=== PATIENT | female | born 1960 | race Caucasian/White ===

== ENCOUNTER 2023-06-19 15:32 | Emergency (ER) | payer BC, MEDICARE ==
[2023-06-19 15:57] VITALS: TEMP 96.9
[2023-06-19 16:43] VITALS: O2SAT 94
--- NOTE | 2023-06-19 17:03 | ERPHSYRPT ---
- History of Present Illness Historian: patient Exam Limitations: other (Poor historian) Patient Subjective Stated Complaint: pt states that her blood pressure is high. pt states that blood pressure last night was 170/113. Triage Nursing Assessment: pt ambulated into the er; pt is axo x4; c/o htn; pt denies chest pain; hx HTN; clear apical heart tone; clear lung sounds in all lobes; strong lucero radial pulses; strong lucero pedal pulses; hypertensive; skin PDW; no respiratory distress present Physician History: 62 yo WF w h/o GA/DM/HTN/hyperlipidemia/1ppd tobacco abuse until 12 yrs ago originally presented to the ER for elevated BP but now states that she had mid- sternal chest pain starting at 11AM and lasting until 15:30. Pain was an ache, 9 out 10 , and wo radiation. Pt is pain free upon presentation. She denies GA/CAD. States that pain was accompanied by nausea wo vomiting/diaphoresis/dyspnea. Timing/Duration: other (11AM today) Quality: aching Location: substernal Chest Pain Radiation: no radiation Severity of Pain-Max: moderate Severity of Pain-Current: none Modifying Factors: Improves With: nothing Associated Symptoms: denies symptoms, nausea Prior Chest Pain/Cardiac Workup: no prior chest pain Nitro Today/Relief: no nitro taken today Aspirin Treatment Today: no aspirin today Allergies/Adverse Reactions: codeine Allergy (Mild, Verified 06/19/23 15:35) "FEELS DRUNK" Penicillins Allergy (Mild, Verified 06/19/23 15:35) Rash ezetimibe [From Vytorin] Adverse Reaction (Verified 06/19/23 15:35) Muscle Aches niacin Adverse Reaction (Verified 06/19/23 15:35) simvastatin [From Vytorin] Adverse Reaction (Verified 06/19/23 15:35) Muscle Aches Home Medications: Albuterol Sulfate [Proair Respiclick] 2 puff Q12H PRN PRN 03/06/15 [History] Levothyroxine Sodium [Levoxyl] 112 mcg PO DAILY 03/06/15 [History] Metoprolol Tartrate 50 mg [Lopressor 50 MG] 50 mg PO DAILY 03/06/15 [History] PANTOPRAZOLE 40 mg Tablet [Protonix 40MG Tablet] 40 mg PO DAILY 03/06/15 [History] Fluoxetine HCl 20 mg [Prozac 20 MG] 20 mg PO TID 06/19/23 [History] Isosorbide Mononitrate 30 mg [Imdur 30 MG] 30 mg PO DAILY 06/19/23 [History] Pioglitazone HCl [Actos] 45 mg PO DAILY 06/19/23 [History] Potassium Chloride 10 meq PO DAILY 06/19/23 [History] Semaglutide [Ozempic] 1 mg SQ WEEKLY 06/19/23 [History] Valsartan/Hydrochlorothiazide [Valsartan-Hctz 320-25 mg Tab] 1 tablet PO DAILY 06/19/23 [History] Hx Tetanus, Diphtheria Vaccination/Date Given: No Hx Influenza Vaccination/Date Given: Yes (2021) Hx Pneumococcal Vaccination/Date Given: No Travel Risk - International Travel Have you traveled outside of the country in past 3 weeks: No - Coronavirus Screening Are you exhibiting any of the following symptoms?: No Close contact with a COVID-19 positive Pt in past 14-21 Days: Yes - Vaccine Status Have you recieved a Covid-19 vaccination: Yes Physician'S Aide: Moderna - Vaccination Dates Date of 2cond Vaccination (if applicable): 2020 - Review of Systems Constitutional: No Symptoms Eyes: No Symptoms Ears, Nose, & Throat: No Symptoms Respiratory: No Symptoms Cardiac: No Symptoms, Chest Pain Abdominal/Gastrointestinal: No Symptoms Genitourinary Symptoms: No Symptoms Musculoskeletal: No Symptoms Skin: No Symptoms Neurological: No Symptoms Psychological: No Symptoms Endocrine: No Symptoms Hematologic/Lymphatic: No Symptoms Immunological/Allergic: No Symptoms - Past Medical History Pertinent Past Medical History: Yes Neurological History: No Pertinent History ENT History: No Pertinent History Cardiac History: Other Respiratory History: COPD, Bronchitis Endocrine Medical History: No Pertinent History Musculoskeletal History: No Pertinent History GI Medical History: No Pertinent History History: No Pertinent History Psycho-Social History: No Pertinent History Female Reproductive Disorders: No Pertinent History Other Medical History: THYROID CANCER 10 YEARS(RADIATION TABLETS),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 THAT CAUSES CHEST PAIN AT TIMES - Past Surgical History Past Surgical History: Yes Genitourinary: Other Female Surgical History: Hysterectomy, Tubal Ligation Other Surgical History: OPERATION OF THYROID FOR THRYROID CANCER, partial kidney removal due to cancer - Social History Smoking Status: Smoker, status unknown Exposure to second hand smoke: Yes Drug Use: none Patient Lives Alone: No - Nursing Vital Signs Nursing Vital Signs: Initial Vital Signs Temperature 96.9 F 06/19/23 15:32 Pulse Rate 76 06/19/23 15:32 Respiratory Rate 16 06/19/23 15:32 Blood Pressure 212/97 06/19/23 15:32 O2 Sat by Pulse Oximetry 95 06/19/23 15:32 Pain Scale Pain Intensity 0 Hypertensive - Physical Exam General Appearance: no apparent distress Eye Exam: PERRL/EOMI, eyes nml inspection Ears, Nose, Throat Exam: normal ENT inspection, TMs normal, pharynx normal, moist mucous membranes Neck Exam: normal inspection, non-tender, supple, full range of motion, No meningismus, No mass, No Brudzinski, No Kernig's Respiratory Exam: normal breath sounds, lungs clear, airway intact, No respirato ry distress Cardiovascular Exam: regular rate/rhythm, normal heart sounds, normal peripheral pulses, capillary refill <2 sec, No murmur Gastrointestinal/Abdomen Exam: soft, normal bowel sounds, No tenderness Back Exam: normal inspection, normal range of motion, No CVA tenderness, No vertebral tenderness Extremity Exam: normal inspection, normal range of motion Neurologic Exam: alert, oriented x 3, cooperative, medical record administrator II-XII nml as tested, normal mood/affect, nml cerebellar function, nml station & gait, sensation nml Skin Exam: normal color, warm, dry Lymphatic Exam: No adenopathy SpO2 Interpretation: normal SpO2: 94 O2 Delivery: Room Air - Course Nursing assessment & vital signs reviewed: Yes EKG Interpreted by Me: RATE (NSR/Rate 78/Prolonged QTc/Flat Twaves/No acute ST changes) - Radiology Exams Chest X-ray Interpretation: Reviewed by me (CXR neg) Ordered Tests: Active Orders 24 hr Category Date Time Status EKG-ER Only STAT Care 06/19/23 16:53 Active CHEST 1 VIEW (PORTABLE) Stat Exams 06/19/23 16:54 Completed CBC W DIFF Stat Lab 06/19/23 15:46 Completed CMP Stat Lab 06/19/23 15:46 Completed MAGNESIUM Stat Lab 06/19/23 15:46 Completed PROTIME WITH INR Stat Lab 06/19/23 15:46 Completed PTT Stat Lab 06/19/23 15:46 Completed TROPONIN Q4H Lab 06/19/23 15:46 Completed TROPONIN Q4H Lab 06/19/23 21:00 Ordered TROPONIN Q4H Lab 06/20/23 01:00 Ordered Medication Summary Generic Name Dose Route Start Last Admin Trade Name Kelby PRN Reason Stop Dose Admin Clonidine HCl 0.1 mg 06/19/23 18:15 Clonidine Hcl 0.1 Mg Patch TOP 07/19/23 18:14 Q7D [facility] Lab/Rad Data: Laboratory Result Diagrams 06/19/23 15:46 06/19/23 15:46 Laboratory Results 06/19/23 06/19/23 06/19/23 Range/Units 15:46 15:46 15:46 WBC (4.0-10.5) x10^3/uL RBC (4.1-5.4) x10^6/uL Hgb (12.0-16.0) g/dL Hct (35-47) % MCV (78-100) fL MCH (26-32) pg MCHC (32-36) g/dL RDW (11.5-14.0) % Plt Count (150-450) x10^3/uL MPV (7.5-11.0) fL Gran % (36.0-66.0) % Immature Gran % (Auto) (0.00-0.4) % Nucleat RBC Rel Count (0.00-0.1) % Eos # (Auto) (0-0.5) x10^3/uL Immature Gran # (Auto) (0.00-0.03) x10^3u/L Absolute Lymphs (auto) (1.0-4.6) x10^3/uL Absolute Monos (auto) (0.0-1.3) x10^3/uL Absolute Nucleated RBC (0.00-0.01) x10^3u/L Lymphocytes % (24.0-44.0) % Monocytes % (0.0-12.0) % Eosinophils % (0.00-5.0) % Basophils % (0.0-0.4) % Absolute Granulocytes (1.4-6.9) x10^3/uL Basophils # (0-0.4) x10^3/uL PT 10.6 (9.4-12.5) SECONDS INR 0.97 (0.8-3.0) APTT 27.4 (25.1-36.5) SECONDS Sodium 140 (137-145) mmol/L Potassium 3.1 L (3.5-5.1) mmol/L Chloride 98 (98-107) mmol/L Carbon Dioxide 27 (22-30) mmol/L Anion Gap 17.9 H (5-15) MEQ/L BUN 22 H (7-17) mg/dL Creatinine 1.07 H (0.52-1.04) mg/dL Estimated GFR 54.9 ML/MIN Glucose 132 H (74-106) mg/dL Calcium 9.5 (8.4-10.2) mg/dL Magnesium 1.6 (1.6-2.3) mg/dL Total Bilirubin 0.70 (0.2-1.3) mg/dL AST 76 H (14-36) U/L ALT 54 H (0-35) U/L Alkaline Phosphatase 85 (38-126) U/L Troponin I < 0.012 (0.000-0.034) ng/mL Serum Total Protein 7.4 (6.3-8.2) g/dL Albumin 4.4 (3.5-5.0) g/dL 06/19/23 Range/Units 15:46 WBC 7.4 (4.0-10.5) x10^3/uL RBC 4.45 (4.1-5.4) x10^6/uL Hgb 12.8 (12.0-16.0) g/dL Hct 40.3 (35-47) % MCV 90.6 (78-100) fL MCH 28.8 (26-32) pg MCHC 31.8 L (32-36) g/dL RDW 13.5 (11.5-14.0) % Plt Count 189 (150-450) x10^3/uL MPV 11.4 H (7.5-11.0) fL Gran % 61.6 (36.0-66.0) % Immature Gran % (Auto) 0.3 (0.00-0.4) % Nucleat RBC Rel Count 0.0 (0.00-0.1) % Eos # (Auto) 0.13 (0-0.5) x10^3/uL Immature Gran # (Auto) 0.02 (0.00-0.03) x10^3u/L Absolute Lymphs (auto) 2.06 (1.0-4.6) x10^3/uL Absolute Monos (auto) 0.53 (0.0-1.3) x10^3/uL Absolute Nucleated RBC 0.00 (0.00-0.01) x10^3u/L Lymphocytes % 28.0 (24.0-44.0) % Monocytes % 7.2 (0.0-12.0) % Eosinophils % 1.8 (0.00-5.0) % Basophils % 1.1 (0.0-0.4) % Absolute Granulocytes 4.53 (1.4-6.9) x10^3/uL Basophils # 0.08 (0-0.4) x10^3/uL PT (9.4-12.5) SECONDS INR (0.8-3.0) APTT (25.1-36.5) SECONDS Sodium (137-145) mmol/L Potassium (3.5-5.1) mmol/L Chloride (98-107) mmol/L Carbon Dioxide (22-30) mmol/L Anion Gap (5-15) MEQ/L BUN (7-17) mg/dL Creatinine (0.52-1.04) mg/dL Estimated GFR ML/MIN Glucose (74-106) mg/dL Calcium (8.4-10.2) mg/dL Magnesium (1.6-2.3) mg/dL Total Bilirubin (0.2-1.3) mg/dL AST (14-36) U/L ALT (0-35) U/L Alkaline Phosphatase (38-126) U/L Troponin I (0.000-0.034) ng/mL Serum Total Protein (6.3-8.2) g/dL Albumin (3.5-5.0) g/dL - Progress Progress: improved Progress Note: 06/19/23 18:16 Nursing note and vital signs reviewed No food or housing insecurities noted All lab results reviewed and shared w pt CXR result reviewed and shared w pt No chest pain while in ER BP elevated but acceptable for discharge 0.1mg Clonidine patch placed No focal weakness or headache while in ER Counseled pt/family regarding: lab results, diagnosis, need for follow-up, rad results Medical Desision Making - Diagnostic Testing Diagnostic test were ordered, analyzed, and reviewed by me: Yes Radiological Interpretation: Reviewed by me - Risk of complications The pt has a mod risk of morbidity or mortality based on: Need for prescription drug management - Departure Departure Disposition: Home Clinical Impression: Chest pain, Hypertension Condition: Stable Critical Care Time: No Referrals: RUPERTO MULLER NP [Primary Care Provider] - Follow up/PCP as directed Instructions: Chest Pain (DC), Malignant Hypertension (DC) Additional Instructions: Continue current medications Follow up with your family MD tomorrow Return to ER for sustained chest pain or shortness of breath Keep Clonidine patch on for 1 week
[2023-06-19 17:07] LABS: Absolute Neutrophil Ct (ANC) 4.53 x10^3/uL (1.4-6.9); BASOPHIL % 1.1 % (0.0-0.4); Basophil (Absolute #) 0.08 x10^3/uL (0-0.4); Eosinophil % 1.8 % (0.00-5.0); Eosinophil (Absolute #) 0.13 x10^3/uL (0-0.5); Hematocrit 40.3 % (35-47); Hemoglobin 12.8 g/dL (12.0-16.0); IMMATURE GRAN # 0.02 x10^3u/L (0.00-0.03); IMMATURE GRAN % 0.3 % (0.00-0.4); Lymphocyte (Absolute #) 2.06 x10^3/uL (1.0-4.6); Mean Cell Volume 90.6 fL (78-100); Mean Corpuscular Hemoglobin 28.8 pg (26-32); Mean Corpuscular Hgb Concent. 31.8 g/dL (32-36); Mean Platelet Volume 11.4 fL (7.5-11.0); Monocyte (Absolute #) 0.53 x10^3/uL (0.0-1.3); Monocytes % 7.2 % (0.0-12.0); Neutrophil % 61.6 % (36.0-66.0); Platelet Count 189 x10^3/uL (150-450); Red Blood Count 4.45 x10^6/uL (4.1-5.4); Red Cell Distribution Width 13.5 % (11.5-14.0); White Blood Count 7.4 x10^3/uL (4.0-10.5)
[2023-06-19 17:16] LABS: ALBUMIN 4.4 g/dL (3.5-5.0); ANION GAP 17.9 MEQ/L (5-15); BILIRUBIN,TOTAL 0.7 mg/dL (0.2-1.3); Calcium 9.5 mg/dL (8.4-10.2); Creatinine 1 1.07 mg/dL (0.52-1.04); EST GLOMERULAR FILTRATION RATE 54.9 ML/MIN; INR 0.97 (0.8-3.0); MAGNESIUM 1.6 mg/dL (1.6-2.3); PROTIME 10.6 SECONDS (9.4-12.5); PTT 27.4 SECONDS (25.1-36.5); Potassium 3.1 mmol/L (3.5-5.1); Total Protein 7.4 g/dL (6.3-8.2)
--- NOTE | 2023-06-19 18:01 | XRAY ---
Indication: Chest pain. Comparison: October 10, 2020 Portable apical lordotic chest again demonstrates normal heart and lungs with incidental right paratracheal calcified nodes. Bony thorax intact again with osteopenia, mild degenerative changes, and bilateral neck surgical clips. Impression: Continued nonacute chest with chronic features..
[2023-06-19 18:15] VITALS: BP 175/87; PULSE 76; RESP 20
[2023-06-19] MEDS ORDERED: Catapres-TTS 1 PATCH TOP SCH (18:15)
[2023-06-19] MEDS ORDERED: Catapres-TTS 1 PATCH ONE (18:20)
== END 2023-06-19 18:30 | disposition home or self-care (01) ==
LOC: ED 15:32
DX: R07.9 Chest pain, unspecified (principal); I10 Essential (primary) hypertension; R11.0 Nausea; E11.9 Type 2 diabetes mellitus without complications; E78.5 Hyperlipidemia, unspecified; Z79.84 Long term (current) use of oral hypoglycemic drugs; Z79.85 Long-term (current) use of injectable non-insulin antidiabetic drugs; Z79.899 Other long term (current) drug therapy
CPT/HCPCS: 36415; 71045; 80053; 83735; 84484; 85025; 85610; 85730; 93005; 99283; A9270-GY